=== PATIENT | female | born 1960 | race Caucasian/White ===

== ENCOUNTER → 2023-10-06 18:55 | Outpatient (REF) | payer OTHER, SELFPAY | LOC: MRI 3T 18:55 | PROVIDERS: ATTENDING PHYSICIAN Obstetrics & Gynecology; FAMILY PHYSICIAN Family Medicine | DX: N89.8 Other specified noninflammatory disorders of vagina (principal) | CPT/HCPCS: 72197; A9585 ==

== ENCOUNTER → 2023-10-12 13:34 | Outpatient (REF) | payer OTHER, SELFPAY | LOC: WDC 13:34 | PROVIDERS: ATTENDING PHYSICIAN Obstetrics & Gynecology; FAMILY PHYSICIAN Family Medicine | DX: Z12.31 Encounter for screening mammogram for malignant neoplasm of breast (principal) | CPT/HCPCS: 77063; 77067 ==

== ENCOUNTER → 2023-11-02 13:04 | Outpatient (REF) | payer OTHER, SELFPAY | LOC: WDC 13:04 | PROVIDERS: ATTENDING PHYSICIAN Obstetrics & Gynecology; FAMILY PHYSICIAN Family Medicine | DX: R92.2 Inconclusive mammogram (principal) | CPT/HCPCS: 76641 ==

== ENCOUNTER 2023-11-30 07:08 | Day surgery (SDC) | payer OTHER, SELFPAY ==
[2023-11-26 09:36] VITALS: BMI 36.8
[2023-11-26 10:37] LABS: % Basophils 1.3 % (0-2); % Eosinophils 3.6 % (0-6); % Immature Granulocytes 0.4 % (0-0.5); % Lymphocytes 27.3 % (20.5-51.1); % Monocytes 11.5 % (1.7-9.3); % Neutrophils 55.9 % (42.2-75.2); Absolute Basophils 0.1 10^3/uL (0-0.2); Absolute Eosinophils 0.2 10^3/uL (0-0.7); Absolute Lymphocytes 1.5 10^3/uL (1.2-3.4); Absolute Monocytes 0.6 10^3/uL (0.1-0.6); Absolute Neutrophils 3.1 10^3/uL (1.4-6.5); Hemoglobin 12.7 g/dL (12.0-16.0); Mean Corp Hgb Conc. 33.4 g/dL (33.0-37.0); Mean Corpuscular Hgb 29.4 pg (27.0-31.0); Mean Platelet Volume 9.2 fL (7.4-10.4); Nucleated Red Blood Cells % 0 %; Platelet Count 230 10^3/uL (130-400); Red Blood Cell Count 4.32 10^6/uL (4.20-5.40); Red Cell Dist. Width 13.2 % (11.5-14.5); White Blood Cell Count 5.5 10^3/uL (4.8-10.8)
[2023-11-26 11:14] LABS: Blood Urea Nitrogen 18 mg/dl (7-17); Calcium 9.3 mg/dl (8.4-10.2); Carbon Dioxide 30 mmol/L (22-30); Chloride 101 mmol/L (98-107); Estimated Creatinine Clearance 95 ml/min; Glucose 92 mg/dl (70-99); Potassium 4.5 mmol/L (3.5-5.1); Sodium 143 mmol/L (135-145); eGFR > 60.00
[2023-11-30] VITALS (7 sets, daily range): BP systolic 133–168; BP diastolic 71–86; BMI 36.8
[2023-11-30] MEDS: NEURONTIN 300 MG PO (12:30)
[2023-11-30] MEDS: TYLENOL 1000 MG PO (12:30)
--- NOTE | 2023-11-30 14:47 | W.IMMPOSTOP ---
Surgical Immed Post Op Note
-
Primary Surgeon: Giselle Ritter DO
Intraop consult: Dr. Fermin
Pre-op Diagnosis: Thickened endometrial lining, right vulvar mass/Bartholins cyst
Post-op Diagnosis: same
Procedure Performed: Hysteroscopy D&C, right Bartholins cyst excision
Anesthesia Type: general ET Dr. Swann
Specimen / Cultures: 1. endocervical curettings 2. endometrial curettings 3. right vulvar mass
Estimated Blood Loss: 15 ml
Complications: none
Operative Findings: Uterus sounded to 8 cm; no evidence of polyp or mass. bilateral tubal ostia seen. right vuvlar mass c/w Right Bartholins gland cyst approx 3-4 cm, excised intact.
counts correct times 2.
Stable to recovery.
--- NOTE | 2023-11-30 17:04 | OR.RPT ---
Operative Report
Operative Report
Date of procedure: November 30, 2023
Preoperative diagnosis right vulvar mass suspected Bartholin gland cyst
Postoperative diagnosis: Same pending final pathology
Procedure: Excision of right Bartholin's gland cyst
Surgeon: Ziyad Fermin
Seat Scooper Machine: Giselle Ritter
Anesthesia: General Endotracheal intubation
Estimated blood loss 50 cc
Complication: None
Procedure in detail: This patient is brought to the operating room by , the patient has a enlarged right Bartholin's gland cyst and she is post menopausal. I evaluated her in the office, MRI was suggestive of a cystic process and was not
particularly suspicious of a malignant process plan was for me to assist and perform this procedure in the operating room after D&C hysteroscopy was completed. When dilation and curettage was completed I arrived in the operating room. Patient was
already under general anesthesia and was undergoing monitored anesthetic care, LMA intubation had been performed but the patient was not ventilating well and decision was made to convert to an endotracheal intubation. I went ahead and injected
along the linear incision on right labia minora with a combination of lidocaine with epinephrine incision was made with the electrocautery with the Meagher tip the edges of skin from right and left sides were grasped and we used Metzenbaum scissors
to initially dissect the skin off the surface of the Bartholin's gland cyst. Once this was completed I used the hand-held LigaSure device and sealed the pedicles including some fat around the lesion both medially and laterally and superiorly. On
the posterior aspect there was a vascular pedicle that was bleeding and required 2 [id number] suture ligature with 3-0 Vicryl. The posterior and inferior aspect of the mass also abutted a long the anterior aspect of the rectum superior to the
rectal sphincter. I examined the rectum and was able to take this off the rectum without any difficulty or injury to the rectum. Once this was completed several [id number] sutures were placed for hemostasis. I then closed the space with
interrupted sutures of 3-0 Vicryl. 3-0 Monocryl suture in a horizontal mattress fashion was used to close the vulvar incision along the length of the initial incision. Specimen was handed to pathology. Counts of laps instruments and needle was
correct x 2. I was present and scrubbed for entire procedure as dictated above.
Disposition: To PACU, extubated alert and awake
== END 2023-11-30 16:16 | disposition home or self-care (01) ==
LOC: SDS 07:08
PROVIDERS: ATTENDING PHYSICIAN Obstetrics & Gynecology; FAMILY PHYSICIAN Family Medicine; OTHER PHYSICIAN Internal Medicine Cardiovascular Disease
DX: N75.0 Cyst of Bartholin's gland (principal); R93.89 Abnormal findings on diagnostic imaging of other specified body structures
CPT/HCPCS: 58558; 56740; 88304; 88305; 36415; 80048; 85025; 86850; 86900; 86901; 93005; C1776

== ENCOUNTER → 2024-10-12 12:52 | Outpatient (REF) | payer MEDICARE, SELFPAY | LOC: WDC 12:52 | PROVIDERS: ATTENDING PHYSICIAN Obstetrics & Gynecology; FAMILY PHYSICIAN Family Medicine | DX: Z12.31 Encounter for screening mammogram for malignant neoplasm of breast (principal) | CPT/HCPCS: 77063; 77067 ==